=== PATIENT | female | born 1970 | race African-American/Black ===

== ENCOUNTER 2018-08-03 01:09 | Inpatient (IN) | payer OTHER ==
[~2018-08-03] VITALS: Ht 162.6 cm; Wt 91.3 kg
[2018-08-03] MEDS ORDERED: MORPHINE SULFATE 4 MG/ML VIAL. IV ONE ×2 (02:15→03:00)
[2018-08-03] MEDS ORDERED: ONDANSETRON PF 4 MG/2 ML VIAL. IV ONE (02:15)
[2018-08-03] MEDS ORDERED: IV NORMAL SALINE 1000ML BAG 1,000 ML IV ONE (02:15)
[2018-08-03 02:30] LABS: BASO % 1 % (0-3); EOS % 1 % (0-3); HEMATOCRIT 37.7 % (36.0-47.0); HEMOGLOBIN 12.7 g/dL (12.0-15.5); LYMPH # 1.7 x10^3/uL (1.0-4.8); LYMPH % 56 % (24-48); MEAN CORPUSCULAR HEMOGLOBIN 32 pg (25-35); MEAN CORPUSCULAR HGB CONC 34 g/dL (31-37); MEAN CORPUSCULAR VOLUME 94 fL (79-100); MONO # 0.3 x10^3/uL (0.0-1.1); MONO % 9 % (0-9); NEUT # 1.1 x10^3uL (1.8-7.7); NEUT % 35 % (31-73); PLATELET COUNT 200 x10^3/uL (140-400); RED BLOOD COUNT 4.04 x10^6/uL (3.50-5.40); RED CELL DISTRIBUTION WIDTH 14.2 % (11.5-14.5)
[2018-08-03 02:33] LABS: BILIRUBIN,URINE NEGATIVE (NEG); CLARITY,URINE CLEAR; COLOR,URINE YELLOW; NITRITE,URINE NEGATIVE (NEG); PH,URINE 6.5; PROTEIN,URINE NEGATIVE (NEG-TRACE)
[2018-08-03 02:43] LABS: BACTERIA,URINE MODERATE /HPF (0-FEW); RBC,URINE 0 /HPF (0-2); SQUAMOUS EPITHELIAL CELL,UR MANY /LPF
[2018-08-03 02:48] LABS: CALCIUM 9.3 mg/dL (8.5-10.1); CREATININE 0.7 mg/dL (0.6-1.0); GFR 108.5; POTASSIUM 4.1 mmol/L (3.5-5.1)
[2018-08-03 02:55] LABS: ALBUMIN 3.6 g/dL (3.4-5.0); ALBUMIN/GLOBULIN RATIO 0.8 (1.0-1.7); TOTAL BILIRUBIN 0.6 mg/dL (0.2-1.0); TOTAL PROTEIN 8.2 g/dL (6.4-8.2)
[2018-08-03] MEDS ORDERED: CONTRAST GIVEN. MC PRN (03:15)
[2018-08-03] MEDS ORDERED: IOHEXOL 300 MG/ML 100ML VIAL. IV ONE (03:15)
--- NOTE | 2018-08-03 03:54 | RAD ---
EXAM: CT Abdomen and Pelvis with IV contrast CLINICAL HISTORY: severe abdominal pain x tonight; evaluate for small bowel obstruction COMPARISON: none TECHNIQUE: Helical CT of the abdomen and pelvis was performed following the administration of intravenous contrast. Axial, coronal and sagittal reformatted images were generated. PQRS compliance statement - One or more of the following individualized dose reduction techniques were utilized for this study: 1. Automated exposure control 2. Adjustment of the mA and/or kV according to patient size 3. Use of iterative reconstruction technique FINDINGS: Lower chest: Lung bases are clear. Abdomen and Pelvis: No focal liver lesion. Cholecystectomy clips are seen. No biliary ductal dilatation. Spleen is unremarkable. Adrenal glands are normal. Pancreas is unremarkable. Symmetric nephrograms. No focal renal lesion. No hydronephrosis. No hydroureter. The bladder is distended. Appendix is normal. Moderate to large volume colonic stool content in the right colon. No small bowel dilatation. Changes of gastric surgery are seen with anastomotic suture line. No abdominal or pelvic ascites. No abdominal pelvic lymphadenopathy. Bones: Osseous structures are grossly unremarkable. IMPRESSION: 1. No evidence of bowel obstruction. 2. Appendix is normal. 3. Moderate to large volume colonic stool content in the right colon. 4. Bladder is distended. This can be correlated with voluntary or involuntary causes of urinary retention. Electronically signed by: Oziel Blanchard MD (08/03/2018 3:51 AM) [facility]
--- NOTE | 2018-08-03 04:01 | PHYS DOC ---
Past Medical History Past Medical History: Other Additional Past Medical Histor: Scarring Alopecia Past Surgical History: Other Additional Past Surgical Histo: Tiki-en-y and Revision, Fibroid Cysts removed Alcohol Use: Occasionally Drug Use: None Adult General Chief Complaint Chief Complaint: ABDOMINAL PAIN HPI HPI Patient is a 48 year old female presents with a few hours of abdominal pain happened after eating diffuse but more in the upper quadrant areas. Patient has been nauseous she is still passing flatus. No vomiting no fever she had a Tiki- en-Y and [place] and revision about 2 years ago her original surgeon was Dr. Adorno he has since retired. No fever no chest pain. Review of Systems Review of Systems Constitutional: Denies fever or chills [] Eyes: Denies change in visual acuity, redness, or eye pain [] HENT: Denies nasal congestion or sore throat [] Respiratory: Denies cough or shortness of breath [] Cardiovascular: No additional information not addressed in HPI [] GI: Denies abdominal pain, nausea, vomiting, bloody stools or diarrhea [] : Denies dysuria or hematuria [] Musculoskeletal: Denies back pain or joint pain [] Integument: Denies rash or skin lesions [] Neurologic: Denies headache, focal weakness or sensory changes [] Endocrine: Denies polyuria or polydipsia [] All other systems were reviewed and found to be within normal limits, except as documented in this note. Current Medications Current Medications Current Medications Medications (Trade) Dose Ordered Sig/Mikayla Start Time Stop Time Status Last Admin Dose Admin Info (CONTRAST GIVEN -- Rx MONITORING) 1 each PRN DAILY PRN 08/03/18 03:15 08/05/18 03:14 Iohexol (Omnipaque 300 Mg/ml) 75 ml 1X ONCE 08/03/18 03:15 08/03/18 03:16 DC 08/03/18 03:21 75 ML Morphine Sulfate (Morphine Sulfate) 4 mg 1X ONCE 08/03/18 03:00 08/03/18 03:01 DC 08/03/18 03:05 4 MG Ondansetron HCl (Zofran) 4 mg 1X ONCE 08/03/18 02:15 08/03/18 02:16 DC 08/03/18 02:28 4 MG Sodium Chloride 1,000 ml @ 1,000 mls/hr 1X ONCE 08/03/18 02:15 08/03/18 03:14 DC 08/03/18 02:23 1,000 MLS/HR Allergies Allergies Allergies Coded Allergies Type Severity Reaction Last Updated Verified No Known Drug Allergies 08/03/18 No Physical Exam Physical Exam Constitutional: Well developed, well nourisheD, TEARFUL DISstress, non-toxic appearance. [] HENT: Normocephalic, atraumatic, bilateral external ears normal, oropharynx moist, no oral exudates, nose normal. [] Eyes: PERRLA, EOMI, conjunctiva normal, no discharge. [] Neck: Normal range of motion, no tenderness, supple, no stridor. [] Cardiovascular:Heart rate regular rhythm, no murmur [] Lungs & Thorax: Bilateral breath sounds clear to auscultation [] Abdomen: Tenderness to palpation is noted in the epigastric area patient pushes my hand away voluntarily but there are no other obvious peritoneal signs. Back: No tenderness, no CVA tenderness. [] Extremities: No tenderness, no cyanosis, no clubbing, ROM intact, no edema. [] Neurologic: Alert and oriented X 3, normal motor function, normal sensory function, no focal deficits noted. [] Psychologic: Affect normal, judgement normal, mood normal. [] Current Patient Data Vital Signs Vital Signs Date Time Temp Pulse Resp B/P (MAP) Pulse Ox O2 Delivery O2 Flow Rate FiO2 08/03/18 03:05 16 100 Room Air 08/03/18 01:45 97.8 64 130/77 (94) 97.8 Lab Values Laboratory Tests Test 08/03/18 01:58 08/03/18 02:00 08/03/18 02:02 08/03/18 02:40 Urine Collection Type Unknown Urine Color Yellow Urine Clarity Clear Urine pH 6.5 Urine Specific [place] 1.010 Urine Protein Negative mg/dL (NEG-TRACE) Urine Glucose (UA) Negative mg/dL (NEG) Urine Ketones (Stick) 15 mg/dL (NEG) Urine Blood Negative (NEG) Urine Nitrite Negative (NEG) Urine Bilirubin Negative (NEG) Urine Urobilinogen Dipstick 1.0 mg/dL (0.2 mg/dL) Urine Leukocyte Esterase Small (NEG) Urine RBC 0 /HPF (0-2) Urine WBC 5-10 /HPF (0-4) Urine Squamous Epithelial Cells Many /LPF Urine Bacteria Moderate /HPF (0-FEW) Urine Mucus Slight /LPF White Blood Count 3.0 x10^3/uL (4.0-11.0) L Red Blood Count 4.04 x10^6/uL (3.50-5.40) Hemoglobin 12.7 g/dL (12.0-15.5) Hematocrit 37.7 % (36.0-47.0) Mean Corpuscular Volume 94 fL (79-100) Mean Corpuscular Hemoglobin 32 pg (25-35) Mean Corpuscular Hemoglobin Concent 34 g/dL (31-37) Red Cell Distribution Width 14.2 % (11.5-14.5) Platelet Count 200 x10^3/uL (140-400) Neutrophils (%) (Auto) 35 % (31-73) Lymphocytes (%) (Auto) 56 % (24-48) H Monocytes (%) (Auto) 9 % (0-9) Eosinophils (%) (Auto) 1 % (0-3) Basophils (%) (Auto) 1 % (0-3) Neutrophils # (Auto) 1.1 x10^3uL (1.8-7.7) L Lymphocytes # (Auto) 1.7 x10^3/uL (1.0-4.8) Monocytes # (Auto) 0.3 x10^3/uL (0.0-1.1) Eosinophils # (Auto) 0.0 x10^3/uL (0.0-0.7) Basophils # (Auto) 0.0 x10^3/uL (0.0-0.2) Sodium Level 140 mmol/L (136-145) Potassium Level 4.1 mmol/L (3.5-5.1) Chloride Level 103 mmol/L (98-107) Carbon Dioxide Level 23 mmol/L (21-32) Anion Gap 14 (6-14) Blood Urea Nitrogen 17 mg/dL (7-20) Creatinine 0.7 mg/dL (0.6-1.0) Estimated GFR (Cockcroft-Gault) 108.5 BUN/Creatinine Ratio 24 (6-20) H Glucose Level 88 mg/dL (70-99) Calcium Level 9.3 mg/dL (8.5-10.1) Total Bilirubin 0.6 mg/dL (0.2-1.0) Aspartate Amino Transferase (AST) 28 U/L (15-37) Alanine Aminotransferase (ALT) 22 U/L (14-59) Alkaline Phosphatase 66 U/L (46-116) Troponin I Quantitative < 0.017 ng/mL (0.000-0.055) Total Protein 8.2 g/dL (6.4-8.2) Albumin 3.6 g/dL (3.4-5.0) Albumin/Globulin Ratio 0.8 (1.0-1.7) L Lipase 207 U/L (73-393) POC Urine HCG, Qualitative Hcg negative (Negative) Lactic Acid Level 1.4 mmol/L (0.4-2.0) Laboratory Tests 08/03/18 02:00 Laboratory Tests 08/03/18 02:00 EKG EKG []EKG normal sinus rhythm no signs of ischemia Radiology/Procedures Radiology/Procedures [] Impressions: IMPRESSION: 1. No evidence of bowel obstruction. 2. Appendix is normal. 3. Moderate to large volume colonic stool content in the right colon. 4. Bladder is distended. This can be correlated with voluntary or involuntary causes of urinary retention. Electronically signed by: Oziel Blanchard MD (08/03/2018 3:51 AM) [facility] Course & Med Decision Making Course & Med Decision Making Pertinent Labs and Imaging studies reviewed. (See chart for details) PT GIVEN MORPHINE X TWO ON RE-EVAL CT UNREMARKABLE STILL IN SIGNIFICANT PAIN, BURNING PAIN, HAVING BURPING AND BELCHING TAKES DOXYCYCLINE QUERY ESOPHAGITIS WITH PRIOR ROUXENY? WILLADMIT FOR PAIN CONTROL AND CONSULTATIONS PATIENT IS STILL SIGNIFICANTLY UNCOMFORTABLE IN THE ER. [] Dragon Disclaimer Dragon Disclaimer This electronic medical record was generated, in whole or in part, using a voice recognition dictation system. Departure Departure Impression: Primary Impression: Abdominal pain Disposition: ADMITTED INPATIENT Admitting Physician: Ailyn Dill Condition: STABLE Referrals: NO PCP (PCP) TOÑO MCKEON MD Aug 03, 2018 04:01
[2018-08-03] MEDS ORDERED: FAMOTIDINE 20 MG/2 ML VIAL IVP ONE (04:15)
[2018-08-03] MEDS ORDERED: ONDANSETRON PF 4 MG/2 ML VIAL. IV PRN (04:15)
[2018-08-03] MEDS: MORPHINE SULFATE 4 MG/ML VIAL. IV PRN ×2 (04:25→06:29)
[2018-08-03] MEDS: IV NORMAL SALINE 1000ML BAG 1,000 ML IV SCH ×2 (04:32→14:54)
--- NOTE | 2018-08-03 04:58 | EKG ---
[facility] [address] [place] [address] Test Date: 2018-08-03 Test Time: 02:44:37 Pat Name: FATMATA SELF Department: Room: [facility] Gender: F Fur Cutter: : 1970 Requested By: TOÑO MCKEON Order Number: [id number] Reading MD: Castillo Sawyer Measurements Intervals [place] Rate: 54 P: 36 MA: 166 QRS: 14 QRSD: 80 T: 32 QT: 440 QTc: 419 Interpretive Statements SINUS RHYTHM LOW LIMB LEAD VOLTAGE Electronically Signed On 08-10-2018 10:52:17 HAZMAT CDL DRIVER by Castillo Sawyer
[2018-08-03 05:30] VITALS: BP 125/64
[2018-08-03] MEDS ORDERED: SPIR100T4 PO (06:35)
[2018-08-03] MEDS ORDERED: [UNRECOGNIZED DRUG - CODE] PO (06:35)
[2018-08-03 07:15] VITALS: BP 125/71
[2018-08-03] MEDS ORDERED: HYDROmorphone 2 MG/ML VIAL IV PRN (07:45)
--- NOTE | 2018-08-03 08:59 | PDOC1 ---
History and Physical Date of Admission Date of Admission DATE: 08/03/18 TIME: 08:59 Identification/Chief Complaint Chief Complaint seen in er with a few hours of abdominal pain happened after eating diffuse but more in the upper quadrant areas. Patient has been nauseous she is still passing flatus. No vomiting no fever she had a Tiki-en-Y and [place] and revision about 2 years ago her original surgeon was Dr. Adorno , since retired Past Medical History Past Medical History Past Medical History Past Medical History: Other Additional Past Medical Histor: Scarring Alopecia Past Surgical History: Other Additional Past Surgical Histo: Tiki-en-y and Revision, Fibroid Cysts removed Alcohol Use: Occasionally Drug Use: None FAMILY HX OBESITY Family History Family History: High Cholestrol Social History Smoke: No ALCOHOL: none Drugs: None Current Medications Current Medications Current Medications Morphine Sulfate (Morphine Sulfate) 4 mg 1X ONCE IV Last administered on at 02:29; Start 08/03/18 at 02:15; Stop 08/03/18 at 02:16; Status DC Sodium Chloride 1,000 ml @ 1,000 mls/hr 1X ONCE IV Last administered on at 02:23; Start 08/03/18 at 02:15; Stop 08/03/18 at 03:14; Status DC Ondansetron HCl (Zofran) 4 mg 1X ONCE IV Last administered on 08/03/18at 02:28 ; Start 08/03/18 at 02:15; Stop 08/03/18 at 02:16; Status DC Morphine Sulfate (Morphine Sulfate) 4 mg 1X ONCE IV Last administered on at 03:05; Start 08/03/18 at 03:00; Stop 08/03/18 at 03:01; Status DC Iohexol (Omnipaque 300 Mg/ml) 75 ml 1X ONCE IV Last administered on 08/03/18at 03:21; Start 08/03/18 at 03:15; Stop 08/03/18 at 03:16; Status DC Info (CONTRAST GIVEN -- Rx MONITORING) 1 each PRN DAILY PRN MC SEE COMMENTS; Start 08/03/18 at 03:15; Stop 08/05/18 at 03:14 Ondansetron HCl (Zofran) 4 mg PRN Q8HRS PRN IV NAUSEA/VOMITING; Start 08/03/18 at 04:15; Stop 08/04/18 at 04:14 Morphine Sulfate (Morphine Sulfate) 4 mg PRN Q2HR PRN IV PAIN Last administered on 08/03/18at 06:29; Start 08/03/18 at 04:15; Stop 08/04/18 at 04:14 Sodium Chloride 1,000 ml @ 75 mls/hr [id number] IV Last administered on at 04:32; Start 08/03/18 at 04:15; Stop 08/04/18 at 04:14 Famotidine (Pepcid Vial) 20 mg 1X ONCE IVP Last administered on 08/03/18at 04: 28; Start 08/03/18 at 04:15; Stop 08/03/18 at 04:16; Status DC Hydromorphone HCl (Dilaudid) 1 mg PRN Q3HRS PRN IV SEVERE PAIN Last administered on 08/03/18at 08:25; Start 08/03/18 at 07:45 Active Scripts Active Reported Doxycycline Hyclate 150 Mg Tablet 150 Mg PO DAILY Spironolactone 100 Mg Tablet 100 Mg PO BID Allergies Allergies: Coded Allergies: No Known Drug Allergies (Unverified , 08/03/18) ROS Review of System Review of Systems Review of Systems Constitutional: Denies fever or chills [] Eyes: Denies change in visual acuity, redness, or eye pain [] HENT: Denies nasal congestion or sore throat [] Respiratory: Denies cough or shortness of breath [] Cardiovascular: No additional information not addressed in HPI [] GI: Denies abdominal pain, nausea, vomiting, bloody stools or diarrhea [] : Denies dysuria or hematuria [] Musculoskeletal: Denies back pain or joint pain [] Integument: Denies rash or skin lesions [] Neurologic: Denies headache, focal weakness or sensory changes [] Endocrine: Denies polyuria or polydipsia [] 14 pt systems were reviewed and found to be within normal limits, except as documented . Gastrointestinal: Yes Abdominal Pain, Yes Constipation Physical Exam Physical Exam Physical Exam Physical Exam Constitutional: Well developed, well nourisheD, TEARFUL DISstress, non-toxic appearance. [] HENT: Normocephalic, atraumatic, bilateral external ears normal, oropharynx moist, no oral exudates, nose normal. [] Eyes: PERRLA, EOMI, conjunctiva normal, no discharge. [] Neck: Normal range of motion, no tenderness, supple, no stridor. [] Cardiovascular:Heart rate regular rhythm, no murmur [] Lungs & Thorax: Bilateral breath sounds clear to auscultation [] Abdomen: Tenderness to palpation is noted in the epigastric area patient pushes my hand away voluntarily but there are no other obvious peritoneal signs. Back: No tenderness, no CVA tenderness. [] Extremities: No tenderness, no cyanosis, no clubbing, ROM intact, no edema. [] Neurologic: Alert and oriented X 3, normal motor function, normal sensory function, no focal deficits noted. [] Psychologic: Affect normal, judgement normal, mood normal. [] General: Alert, Oriented X3, Cooperative HEENT: PERRLA, EOMI, Mucous membr. moist/pink Lungs: Clear to auscultation Heart: RRR Breasts: Not examined Abdomen: Normal bowel sounds Rectal Exam: not examined PELVIC: Examination not indicated Neuro: Normal speech, Cranial nerves 3-12 NL Psych/Mental Status: Mental status NL, Mood NL Vitals Vitals Vital Signs Date Time Temp Pulse Resp B/P (MAP) Pulse Ox O2 Delivery O2 Flow Rate FiO2 08/03/18 07:15 98.4 71 18 125/71 (89) 96 Room Air 98.4 Labs Labs Laboratory Tests Test 08/03/18 01:58 08/03/18 02:00 08/03/18 02:02 08/03/18 02:40 Urine Collection Type Unknown Urine Color Yellow Urine Clarity Clear Urine pH 6.5 Urine Specific [place] 1.010 Urine Protein Negative mg/dL (NEG-TRACE) Urine Glucose (UA) Negative mg/dL (NEG) Urine Ketones (Stick) 15 mg/dL (NEG) Urine Blood Negative (NEG) Urine Nitrite Negative (NEG) Urine Bilirubin Negative (NEG) Urine Urobilinogen Dipstick 1.0 mg/dL (0.2 mg/dL) Urine Leukocyte Esterase Small (NEG) Urine RBC 0 /HPF (0-2) Urine WBC 5-10 /HPF (0-4) Urine Squamous Epithelial Cells Many /LPF Urine Bacteria Moderate /HPF (0-FEW) Urine Mucus Slight /LPF White Blood Count 3.0 x10^3/uL (4.0-11.0) Red Blood Count 4.04 x10^6/uL (3.50-5.40) Hemoglobin 12.7 g/dL (12.0-15.5) Hematocrit 37.7 % (36.0-47.0) Mean Corpuscular Volume 94 fL (79-100) Mean Corpuscular Hemoglobin 32 pg (25-35) Mean Corpuscular Hemoglobin Concent 34 g/dL (31-37) Red Cell Distribution Width 14.2 % (11.5-14.5) Platelet Count 200 x10^3/uL (140-400) Neutrophils (%) (Auto) 35 % (31-73) Lymphocytes (%) (Auto) 56 % (24-48) Monocytes (%) (Auto) 9 % (0-9) Eosinophils (%) (Auto) 1 % (0-3) Basophils (%) (Auto) 1 % (0-3) Neutrophils # (Auto) 1.1 x10^3uL (1.8-7.7) Lymphocytes # (Auto) 1.7 x10^3/uL (1.0-4.8) Monocytes # (Auto) 0.3 x10^3/uL (0.0-1.1) Eosinophils # (Auto) 0.0 x10^3/uL (0.0-0.7) Basophils # (Auto) 0.0 x10^3/uL (0.0-0.2) Sodium Level 140 mmol/L (136-145) Potassium Level 4.1 mmol/L (3.5-5.1) Chloride Level 103 mmol/L (98-107) Carbon Dioxide Level 23 mmol/L (21-32) Anion Gap 14 (6-14) Blood Urea Nitrogen 17 mg/dL (7-20) Creatinine 0.7 mg/dL (0.6-1.0) Estimated GFR (Cockcroft-Gault) 108.5 BUN/Creatinine Ratio 24 (6-20) Glucose Level 88 mg/dL (70-99) Calcium Level 9.3 mg/dL (8.5-10.1) Total Bilirubin 0.6 mg/dL (0.2-1.0) Aspartate Amino Transf (AST/SGOT) 28 U/L (15-37) Alanine Aminotransferase (ALT/SGPT) 22 U/L (14-59) Alkaline Phosphatase 66 U/L (46-116) Troponin I Quantitative < 0.017 ng/mL (0.000-0.055) Total Protein 8.2 g/dL (6.4-8.2) Albumin 3.6 g/dL (3.4-5.0) Albumin/Globulin Ratio 0.8 (1.0-1.7) Lipase 207 U/L (73-393) Bedside Urine HCG, Qualitative Hcg negative (Negative) Lactic Acid Level 1.4 mmol/L (0.4-2.0) Laboratory Tests Test 08/03/18 01:58 08/03/18 02:00 08/03/18 02:02 08/03/18 02:40 Urine Collection Type Unknown Urine Color Yellow Urine Clarity Clear Urine pH 6.5 Urine Specific [place] 1.010 Urine Protein Negative mg/dL (NEG-TRACE) Urine Glucose (UA) Negative mg/dL (NEG) Urine Ketones (Stick) 15 mg/dL (NEG) Urine Blood Negative (NEG) Urine Nitrite Negative (NEG) Urine Bilirubin Negative (NEG) Urine Urobilinogen Dipstick 1.0 mg/dL (0.2 mg/dL) Urine Leukocyte Esterase Small (NEG) Urine RBC 0 /HPF (0-2) Urine WBC 5-10 /HPF (0-4) Urine Squamous Epithelial Cells Many /LPF Urine Bacteria Moderate /HPF (0-FEW) Urine Mucus Slight /LPF White Blood Count 3.0 x10^3/uL (4.0-11.0) Red Blood Count 4.04 x10^6/uL (3.50-5.40) Hemoglobin 12.7 g/dL (12.0-15.5) Hematocrit 37.7 % (36.0-47.0) Mean Corpuscular Volume 94 fL (79-100) Mean Corpuscular Hemoglobin 32 pg (25-35) Mean Corpuscular Hemoglobin Concent 34 g/dL (31-37) Red Cell Distribution Width 14.2 % (11.5-14.5) Platelet Count 200 x10^3/uL (140-400) Neutrophils (%) (Auto) 35 % (31-73) Lymphocytes (%) (Auto) 56 % (24-48) Monocytes (%) (Auto) 9 % (0-9) Eosinophils (%) (Auto) 1 % (0-3) Basophils (%) (Auto) 1 % (0-3) Neutrophils # (Auto) 1.1 x10^3uL (1.8-7.7) Lymphocytes # (Auto) 1.7 x10^3/uL (1.0-4.8) Monocytes # (Auto) 0.3 x10^3/uL (0.0-1.1) Eosinophils # (Auto) 0.0 x10^3/uL (0.0-0.7) Basophils # (Auto) 0.0 x10^3/uL (0.0-0.2) Sodium Level 140 mmol/L (136-145) Potassium Level 4.1 mmol/L (3.5-5.1) Chloride Level 103 mmol/L (98-107) Carbon Dioxide Level 23 mmol/L (21-32) Anion Gap 14 (6-14) Blood Urea Nitrogen 17 mg/dL (7-20) Creatinine 0.7 mg/dL (0.6-1.0) Estimated GFR (Cockcroft-Gault) 108.5 BUN/Creatinine Ratio 24 (6-20) Glucose Level 88 mg/dL (70-99) Calcium Level 9.3 mg/dL (8.5-10.1) Total Bilirubin 0.6 mg/dL (0.2-1.0) Aspartate Amino Transf (AST/SGOT) 28 U/L (15-37) Alanine Aminotransferase (ALT/SGPT) 22 U/L (14-59) Alkaline Phosphatase 66 U/L (46-116) Troponin I Quantitative < 0.017 ng/mL (0.000-0.055) Total Protein 8.2 g/dL (6.4-8.2) Albumin 3.6 g/dL (3.4-5.0) Albumin/Globulin Ratio 0.8 (1.0-1.7) Lipase 207 U/L (73-393) Bedside Urine HCG, Qualitative Hcg negative (Negative) Lactic Acid Level 1.4 mmol/L (0.4-2.0) Images Images PROCEDURE: CT ABD PELV W/ IV CONTRST ONLY EXAM: CT Abdomen and Pelvis with IV contrast CLINICAL HISTORY: severe abdominal pain x tonight; evaluate for small bowel obstruction COMPARISON: none TECHNIQUE: Helical CT of the abdomen and pelvis was performed following the administration of intravenous contrast. Axial, coronal and sagittal reformatted images were generated. PQRS compliance statement - One or more of the following individualized dose reduction techniques were utilized for this study: 1. Automated exposure control 2. Adjustment of the mA and/or kV according to patient size 3. Use of iterative reconstruction technique FINDINGS: Lower chest: Lung bases are clear. Abdomen and Pelvis: No focal liver lesion. Cholecystectomy clips are seen. No biliary ductal dilatation. Spleen is unremarkable. Adrenal glands are normal. Pancreas is unremarkable. Symmetric nephrograms. No focal renal lesion. No hydronephrosis. No hydroureter. The bladder is distended. Appendix is normal. Moderate to large volume colonic stool content in the right colon. No small bowel dilatation. Changes of gastric surgery are seen with anastomotic suture line. No abdominal or pelvic ascites. No abdominal pelvic lymphadenopathy. Bones: Osseous structures are grossly unremarkable. IMPRESSION: 1. No evidence of bowel obstruction. 2. Appendix is normal. 3. Moderate to large volume colonic stool content in the right colon. 4. Bladder is distended. This can be correlated with voluntary or involuntary causes of urinary retention. Electronically signed by: Oziel Blanchard MD (08/03/2018 3:51 AM) [facility] VTE Prophylaxis Ordered VTE Prophylaxis Devices: Yes VTE Pharmacological Prophylaxi: Yes Assessment/Plan Assessment/Plan IMPRESSION: 1. No evidence of bowel obstruction. 2. Appendix is normal. 3. Moderate to large volume colonic stool content in the right colon. 4. abdominal pain sec to # 3 plan laxatives miralax daily colace 100mg po bid gen surg consult d/c narcotics, will compound obstipation mag citrate 12 oz po x 1 now LIDA GOTTI MD Aug 03, 2018 08:59
--- NOTE | 2018-08-03 09:04 | PDOC2 ---
RANDEE PIZANO CREMATOR 08/03/18 0904: CONSULT Date of Consult Date of Consult DATE: 08/03/18 TIME: 08:58 Reason for Consult Reason for Consult: abdominal pain Referring Physician Referring Physician: ER Identification/Chief Complaint Chief Complaint abdominal pain Source Source: Chart review, Patient History of Present Illness Reason for Visit: Acute onset of abdominal pain after eating salmon yesterday. The pain continued to worsen. Associated nausea. Reports last stool on Thursday, no diarrhea. Pain is significant across upper abdomen Hx of gastric bypass and revision Past Medical History Past Medical History no pertinent hx Past Surgical History Past Surgical History: Hysterectomy (partial), Other (gastric bypass and revision) Family History Family History: Other (noncontributory to current illness ) Social History No ALCOHOL: rare Drugs: None Lives: with Family Current Medications Current Medications Current Medications Morphine Sulfate (Morphine Sulfate) 4 mg 1X ONCE IV Last administered on at 02:29; Start 08/03/18 at 02:15; Stop 08/03/18 at 02:16; Status DC Sodium Chloride 1,000 ml @ 1,000 mls/hr 1X ONCE IV Last administered on at 02:23; Start 08/03/18 at 02:15; Stop 08/03/18 at 03:14; Status DC Ondansetron HCl (Zofran) 4 mg 1X ONCE IV Last administered on 08/03/18at 02:28 ; Start 08/03/18 at 02:15; Stop 08/03/18 at 02:16; Status DC Morphine Sulfate (Morphine Sulfate) 4 mg 1X ONCE IV Last administered on at 03:05; Start 08/03/18 at 03:00; Stop 08/03/18 at 03:01; Status DC Iohexol (Omnipaque 300 Mg/ml) 75 ml 1X ONCE IV Last administered on 08/03/18at 03:21; Start 08/03/18 at 03:15; Stop 08/03/18 at 03:16; Status DC Info (CONTRAST GIVEN -- Rx MONITORING) 1 each PRN DAILY PRN MC SEE COMMENTS; Start 08/03/18 at 03:15; Stop 08/05/18 at 03:14 Ondansetron HCl (Zofran) 4 mg PRN Q8HRS PRN IV NAUSEA/VOMITING; Start 08/03/18 at 04:15; Stop 08/04/18 at 04:14 Morphine Sulfate (Morphine Sulfate) 4 mg PRN Q2HR PRN IV PAIN Last administered on 08/03/18at 06:29; Start 08/03/18 at 04:15; Stop 08/04/18 at 04:14 Sodium Chloride 1,000 ml @ 75 mls/hr [id number] IV Last administered on at 04:32; Start 08/03/18 at 04:15; Stop 08/04/18 at 04:14 Famotidine (Pepcid Vial) 20 mg 1X ONCE IVP Last administered on 08/03/18at 04: 28; Start 08/03/18 at 04:15; Stop 08/03/18 at 04:16; Status DC Hydromorphone HCl (Dilaudid) 1 mg PRN Q3HRS PRN IV SEVERE PAIN Last administered on 08/03/18at 08:25; Start 08/03/18 at 07:45 Active Scripts Active Reported Doxycycline Hyclate 150 Mg Tablet 150 Mg PO DAILY Spironolactone 100 Mg Tablet 100 Mg PO BID Allergies Allergies: Coded Allergies: No Known Drug Allergies (Unverified , 08/03/18) ROS General: No: Chills, Other (fevers ) PSYCHOLOGICAL ROS: No: Anxiety, Depression Eyes: No Blurry vision HEENT: No: Heacaches, Sore Throat Hematological and Lymphatic: No: Bleeding Problems, Blood Clots Respiratory: No: Cough, Shortness of breath Cardiovascular: No Chest Pain, No Palpitations Gastrointestinal: Yes Other (see hpi) Genitourinary: No Dysuria, No Hematuria Musculoskeletal: No Joint Pain, No Muscle Pain Neurological: No Confusion, No Impaired Coord/balance Skin: No Pruritus, No Rash Physical Exam General: Alert, Oriented X3, Cooperative, No acute distress HEENT: PERRLA, Mucous membr. moist/pink Lungs: Clear to auscultation, Normal air movement Heart: Regular rate, Normal S1, Normal S2, No murmurs Abdomen: Soft, Other (TTP upper abdomen, no guarding ) Extremities: No clubbing, No cyanosis Skin: No rashes, No breakdown Neuro: Normal gait, Normal speech Psych/Mental Status: Mental status NL, Mood NL MUSCULOSKELETAL: No deformity, No swelling Vitals VITALS Vital Signs Date Time Temp Pulse Resp B/P (MAP) Pulse Ox O2 Delivery O2 Flow Rate FiO2 08/03/18 07:15 98.4 71 18 125/71 (89) 96 Room Air 98.4 Labs Labs Laboratory Tests Test 08/03/18 01:58 08/03/18 02:00 08/03/18 02:02 08/03/18 02:40 Urine Collection Type Unknown Urine Color Yellow Urine Clarity Clear Urine pH 6.5 Urine Specific [place] 1.010 Urine Protein Negative mg/dL (NEG-TRACE) Urine Glucose (UA) Negative mg/dL (NEG) Urine Ketones (Stick) 15 mg/dL (NEG) Urine Blood Negative (NEG) Urine Nitrite Negative (NEG) Urine Bilirubin Negative (NEG) Urine Urobilinogen Dipstick 1.0 mg/dL (0.2 mg/dL) Urine Leukocyte Esterase Small (NEG) Urine RBC 0 /HPF (0-2) Urine WBC 5-10 /HPF (0-4) Urine Squamous Epithelial Cells Many /LPF Urine Bacteria Moderate /HPF (0-FEW) Urine Mucus Slight /LPF White Blood Count 3.0 x10^3/uL (4.0-11.0) Red Blood Count 4.04 x10^6/uL (3.50-5.40) Hemoglobin 12.7 g/dL (12.0-15.5) Hematocrit 37.7 % (36.0-47.0) Mean Corpuscular Volume 94 fL (79-100) Mean Corpuscular Hemoglobin 32 pg (25-35) Mean Corpuscular Hemoglobin Concent 34 g/dL (31-37) Red Cell Distribution Width 14.2 % (11.5-14.5) Platelet Count 200 x10^3/uL (140-400) Neutrophils (%) (Auto) 35 % (31-73) Lymphocytes (%) (Auto) 56 % (24-48) Monocytes (%) (Auto) 9 % (0-9) Eosinophils (%) (Auto) 1 % (0-3) Basophils (%) (Auto) 1 % (0-3) Neutrophils # (Auto) 1.1 x10^3uL (1.8-7.7) Lymphocytes # (Auto) 1.7 x10^3/uL (1.0-4.8) Monocytes # (Auto) 0.3 x10^3/uL (0.0-1.1) Eosinophils # (Auto) 0.0 x10^3/uL (0.0-0.7) Basophils # (Auto) 0.0 x10^3/uL (0.0-0.2) Sodium Level 140 mmol/L (136-145) Potassium Level 4.1 mmol/L (3.5-5.1) Chloride Level 103 mmol/L (98-107) Carbon Dioxide Level 23 mmol/L (21-32) Anion Gap 14 (6-14) Blood Urea Nitrogen 17 mg/dL (7-20) Creatinine 0.7 mg/dL (0.6-1.0) Estimated GFR (Cockcroft-Gault) 108.5 BUN/Creatinine Ratio 24 (6-20) Glucose Level 88 mg/dL (70-99) Calcium Level 9.3 mg/dL (8.5-10.1) Total Bilirubin 0.6 mg/dL (0.2-1.0) Aspartate Amino Transf (AST/SGOT) 28 U/L (15-37) Alanine Aminotransferase (ALT/SGPT) 22 U/L (14-59) Alkaline Phosphatase 66 U/L (46-116) Troponin I Quantitative < 0.017 ng/mL (0.000-0.055) Total Protein 8.2 g/dL (6.4-8.2) Albumin 3.6 g/dL (3.4-5.0) Albumin/Globulin Ratio 0.8 (1.0-1.7) Lipase 207 U/L (73-393) Bedside Urine HCG, Qualitative Hcg negative (Negative) Lactic Acid Level 1.4 mmol/L (0.4-2.0) Laboratory Tests Test 08/03/18 01:58 08/03/18 02:00 08/03/18 02:02 08/03/18 02:40 Urine Collection Type Unknown Urine Color Yellow Urine Clarity Clear Urine pH 6.5 Urine Specific [place] 1.010 Urine Protein Negative mg/dL (NEG-TRACE) Urine Glucose (UA) Negative mg/dL (NEG) Urine Ketones (Stick) 15 mg/dL (NEG) Urine Blood Negative (NEG) Urine Nitrite Negative (NEG) Urine Bilirubin Negative (NEG) Urine Urobilinogen Dipstick 1.0 mg/dL (0.2 mg/dL) Urine Leukocyte Esterase Small (NEG) Urine RBC 0 /HPF (0-2) Urine WBC 5-10 /HPF (0-4) Urine Squamous Epithelial Cells Many /LPF Urine Bacteria Moderate /HPF (0-FEW) Urine Mucus Slight /LPF White Blood Count 3.0 x10^3/uL (4.0-11.0) Red Blood Count 4.04 x10^6/uL (3.50-5.40) Hemoglobin 12.7 g/dL (12.0-15.5) Hematocrit 37.7 % (36.0-47.0) Mean Corpuscular Volume 94 fL (79-100) Mean Corpuscular Hemoglobin 32 pg (25-35) Mean Corpuscular Hemoglobin Concent 34 g/dL (31-37) Red Cell Distribution Width 14.2 % (11.5-14.5) Platelet Count 200 x10^3/uL (140-400) Neutrophils (%) (Auto) 35 % (31-73) Lymphocytes (%) (Auto) 56 % (24-48) Monocytes (%) (Auto) 9 % (0-9) Eosinophils (%) (Auto) 1 % (0-3) Basophils (%) (Auto) 1 % (0-3) Neutrophils # (Auto) 1.1 x10^3uL (1.8-7.7) Lymphocytes # (Auto) 1.7 x10^3/uL (1.0-4.8) Monocytes # (Auto) 0.3 x10^3/uL (0.0-1.1) Eosinophils # (Auto) 0.0 x10^3/uL (0.0-0.7) Basophils # (Auto) 0.0 x10^3/uL (0.0-0.2) Sodium Level 140 mmol/L (136-145) Potassium Level 4.1 mmol/L (3.5-5.1) Chloride Level 103 mmol/L (98-107) Carbon Dioxide Level 23 mmol/L (21-32) Anion Gap 14 (6-14) Blood Urea Nitrogen 17 mg/dL (7-20) Creatinine 0.7 mg/dL (0.6-1.0) Estimated GFR (Cockcroft-Gault) 108.5 BUN/Creatinine Ratio 24 (6-20) Glucose Level 88 mg/dL (70-99) Calcium Level 9.3 mg/dL (8.5-10.1) Total Bilirubin 0.6 mg/dL (0.2-1.0) Aspartate Amino Transf (AST/SGOT) 28 U/L (15-37) Alanine Aminotransferase (ALT/SGPT) 22 U/L (14-59) Alkaline Phosphatase 66 U/L (46-116) Troponin I Quantitative < 0.017 ng/mL (0.000-0.055) Total Protein 8.2 g/dL (6.4-8.2) Albumin 3.6 g/dL (3.4-5.0) Albumin/Globulin Ratio 0.8 (1.0-1.7) Lipase 207 U/L (73-393) Bedside Urine HCG, Qualitative Hcg negative (Negative) Lactic Acid Level 1.4 mmol/L (0.4-2.0) Assessment/Plan Assessment/Plan abdominal pain, acute after meal hydration, bowel rest--? self limiting GI consult pending no surgical plans Ct with constipation PATRICK VEGA MD 08/03/18 1327: CONSULT Assessment/Plan Assessment/Plan Pt seen and examined by myself; 48 year old female who developed upper abdominal pain after eating; pain is persistent and relieved with pain meds, non radiating, she does admit to spitting up some. She states she had a lap gastric bypass years ago with Dr Adorno and a revision around [address] Royal. PMH/PSH/SH/ROS as above; exam: alert, somewhat lethargic after receiving pain meds, no neck masses, no scleral icterus, lungs clear, heart RR and R, abdomen soft, tender with palpation in upper mid abdomen, ext neg for edema; Labs and CT reviewed. A/P) 48 year old female with prior history lap gastric bypass and subsequent revision, abdominal pain, no acute findings on CT scan. No clear surgical process, GI consult pending; If pain persists would consider sending the patient to Dr Royal to evaluate if related to her bypass revision. We will sign off as we do not offer bariatric surgical services. RANDEE PIZANO APRN Aug 03, 2018 09:04 PATRICK VEGA MD Aug 03, 2018 13:27
[2018-08-03 11:07] VITALS: BP 133/58
[2018-08-03] MEDS ORDERED: MAGNESIUM CITRATE 296 ML SOLUTION. PO ONE (12:30)
--- NOTE | 2018-08-03 13:10 | PDOC2 ---
GI CONSULT Reason For Consult: Abd pain HPI: HPI: 48 y/o female admitted through ER. Acute onset of mid abdominal pain (cramping , burning, sometimes sharp) after eating at [employer] yesterday. Associated w / n/v, no diarrhea. I saw her earlier this morning - ongoing pain but improved w/ meds, felt thirsty. H/o GERD previously on omeprazole. No dysphagia. No hematemesis. Denies constipation. No chronic abd pain. No hematochezia or melena. No PUD, liver, or pancreas history. H/o Tiki-en-Y w/ Dr. Araujo in 2004. Lost 130 lbs, then had revision in 2016 "for weight gain." Last saw Dr. Araujo for a check-up last year, unclear when last EGD (?prior to revision). Weight stable since. S/p cholecystectomy for stones. No previous colonoscopy. PMH: PMH: scarring alopecia Tiki-en-Y w/ revision, cholecystectomy, oophorectomy ("for fibroid"), umbilical hernia repair FH: Family History: Cancer (father - renal) Social History: Smoke: No ALCOHOL: none Drugs: None ROS: GEN: Denies fevers, chills, sweats HEENT: Denies blurred vision, sore throat CV: Denies chest pain RESP: Denies shortness of air, cough GI: Per HPI : Denies hematuria, dysuria ENDO: Denies weight changes NEURO: Denies confusion, dizziness MSK: Denies weakness, joint pain/swelling SKIN: Denies jaundice, pruritus Vitals: Vitals: Vital Signs Date Time Temp Pulse Resp B/P (MAP) Pulse Ox O2 Delivery O2 Flow Rate FiO2 08/03/18 11:07 97.9 67 18 133/58 (83) 97 Room Air 97.9 Labs: Labs: Laboratory Tests Test 08/03/18 01:58 08/03/18 02:00 08/03/18 02:02 08/03/18 02:40 Urine Collection Type Unknown Urine Color Yellow Urine Clarity Clear Urine pH 6.5 Urine Specific [place] 1.010 Urine Protein Negative mg/dL (NEG-TRACE) Urine Glucose (UA) Negative mg/dL (NEG) Urine Ketones (Stick) 15 mg/dL (NEG) Urine Blood Negative (NEG) Urine Nitrite Negative (NEG) Urine Bilirubin Negative (NEG) Urine Urobilinogen Dipstick 1.0 mg/dL (0.2 mg/dL) Urine Leukocyte Esterase Small (NEG) Urine RBC 0 /HPF (0-2) Urine WBC 5-10 /HPF (0-4) Urine Squamous Epithelial Cells Many /LPF Urine Bacteria Moderate /HPF (0-FEW) Urine Mucus Slight /LPF White Blood Count 3.0 x10^3/uL (4.0-11.0) Red Blood Count 4.04 x10^6/uL (3.50-5.40) Hemoglobin 12.7 g/dL (12.0-15.5) Hematocrit 37.7 % (36.0-47.0) Mean Corpuscular Volume 94 fL (79-100) Mean Corpuscular Hemoglobin 32 pg (25-35) Mean Corpuscular Hemoglobin Concent 34 g/dL (31-37) Red Cell Distribution Width 14.2 % (11.5-14.5) Platelet Count 200 x10^3/uL (140-400) Neutrophils (%) (Auto) 35 % (31-73) Lymphocytes (%) (Auto) 56 % (24-48) Monocytes (%) (Auto) 9 % (0-9) Eosinophils (%) (Auto) 1 % (0-3) Basophils (%) (Auto) 1 % (0-3) Neutrophils # (Auto) 1.1 x10^3uL (1.8-7.7) Lymphocytes # (Auto) 1.7 x10^3/uL (1.0-4.8) Monocytes # (Auto) 0.3 x10^3/uL (0.0-1.1) Eosinophils # (Auto) 0.0 x10^3/uL (0.0-0.7) Basophils # (Auto) 0.0 x10^3/uL (0.0-0.2) Sodium Level 140 mmol/L (136-145) Potassium Level 4.1 mmol/L (3.5-5.1) Chloride Level 103 mmol/L (98-107) Carbon Dioxide Level 23 mmol/L (21-32) Anion Gap 14 (6-14) Blood Urea Nitrogen 17 mg/dL (7-20) Creatinine 0.7 mg/dL (0.6-1.0) Estimated GFR (Cockcroft-Gault) 108.5 BUN/Creatinine Ratio 24 (6-20) Glucose Level 88 mg/dL (70-99) Calcium Level 9.3 mg/dL (8.5-10.1) Total Bilirubin 0.6 mg/dL (0.2-1.0) Aspartate Amino Transf (AST/SGOT) 28 U/L (15-37) Alanine Aminotransferase (ALT/SGPT) 22 U/L (14-59) Alkaline Phosphatase 66 U/L (46-116) Troponin I Quantitative < 0.017 ng/mL (0.000-0.055) Total Protein 8.2 g/dL (6.4-8.2) Albumin 3.6 g/dL (3.4-5.0) Albumin/Globulin Ratio 0.8 (1.0-1.7) Lipase 207 U/L (73-393) Bedside Urine HCG, Qualitative Hcg negative (Negative) Lactic Acid Level 1.4 mmol/L (0.4-2.0) Allergies: Coded Allergies: No Known Drug Allergies (Unverified , 08/03/18) Medications: Current Medications Medications (Trade) Dose Ordered Sig/Mikayla Route PRN Reason Start Time Stop Time Status Last Admin Dose Admin Morphine Sulfate (Morphine Sulfate) 4 mg 1X ONCE IV 08/03/18 02:15 08/03/18 02:16 DC 08/03/18 02:29 Sodium Chloride 1,000 ml @ 1,000 mls/hr 1X ONCE IV 08/03/18 02:15 08/03/18 03:14 DC 08/03/18 02:23 Ondansetron HCl (Zofran) 4 mg 1X ONCE IV 08/03/18 02:15 08/03/18 02:16 DC 08/03/18 02:28 Morphine Sulfate (Morphine Sulfate) 4 mg 1X ONCE IV 08/03/18 03:00 08/03/18 03:01 DC 08/03/18 03:05 Iohexol (Omnipaque 300 Mg/ml) 75 ml 1X ONCE IV 08/03/18 03:15 08/03/18 03:16 DC 08/03/18 03:21 Ondansetron HCl (Zofran) 4 mg PRN Q8HRS PRN IV NAUSEA/VOMITING 08/03/18 04:15 08/04/18 04:14 08/03/18 09:04 Morphine Sulfate (Morphine Sulfate) 4 mg PRN Q2HR PRN IV PAIN 08/03/18 04:15 08/03/18 12:09 DC 08/03/18 06:29 Sodium Chloride 1,000 ml @ 75 mls/hr [id number] IV 08/03/18 04:15 08/04/18 04:14 08/03/18 04:32 Famotidine (Pepcid Vial) 20 mg 1X ONCE IVP 08/03/18 04:15 08/03/18 04:16 DC 08/03/18 04:28 Hydromorphone HCl (Dilaudid) 1 mg PRN Q3HRS PRN IV SEVERE PAIN 08/03/18 07:45 08/03/18 12:09 DC 08/03/18 08:25 Imaging: Imaging: CT A/P IMPRESSION: 1. No evidence of bowel obstruction. 2. Appendix is normal. 3. Moderate to large volume colonic stool content in the right colon. 4. Bladder is distended. This can be correlated with voluntary or involuntary causes of urinary retention. PE: GEN: NAD HEENT: Atraumatic, PERRL LUNGS: CTAB HEART: RRR ABD: NABS, S/ND, quite tender in epigastrium to light touch EXTREMITY: No edema SKIN: No rashes, no jaundice NEURO/PSYCH: A & O 3, drowsy A/P: A/P: Epigastric pain, n/v Leukopenia Abnormal CT - retained stool, distended bladder GERD S/p Tiki-en-Y and revision S/p cholecystectomy CRC screen - average risk -- ?infectious - complicated w/ gastric bypass/revision history Try clears and observe. Agree w/ PPI, Miralax, and Mag Citrate. Will add Carafate. Could consider EGD if indicated. Follow-up w/ bariatric surgeon. Screening colonoscopy at age 51. TANISHA MARCH Aug 03, 2018 13:10
[2018-08-03] MEDS: PROMETHAZINE 12.5 MG TABLET. PO PRN (13:26)
[2018-08-03 14:06] LABS: BARBITURATES NEG (NEG); BENZODIAZEPINES NEG (NEG); CANNABINOIDS NEG (NEG); COCAINE NEG (NEG); METHADONE NEG (NEG); OPIATES POS (NEG); PHENCYCLIDINE NEG (NEG)
[2018-08-03 14:15] LABS: AMPHETAMINE/METHAMPHETAMINE NEG (NEG)
[2018-08-03] MEDS: POLYETHYLENE GLYCOL 3350 17 GM PACKET. PO SCH (14:43)
[2018-08-03] MEDS: DOXYCYCLINE HYCLATE 100 MG TABLET PO SCH (14:43)
[2018-08-03] MEDS: SPIRONOLACTONE 25 MG TABLET PO SCH ×2 (14:43→20:37)
[2018-08-03 15:00] VITALS: BP 111/69
[2018-08-03] MEDS: PANTOPRAZOLE 40 MG TABLET.DR. PO SCH (17:16)
[2018-08-03] MEDS: SUCRALFATE 1 GM/10 ML ORAL.SUSP. PO SCH ×2 (17:16→20:37)
[2018-08-03] MEDS: DOCUSATE SODIUM 100 MG CAPSULE. PO SCH (17:16)
[2018-08-03 19:57] VITALS: BP 100/68
[2018-08-03 23:13] VITALS: BP 102/65
[2018-08-04 03:33] VITALS: BP 119/69
[2018-08-04] MEDS: DOCUSATE SODIUM 100 MG CAPSULE. PO SCH ×2 (05:39→18:00)
--- NOTE | 2018-08-04 08:36 | PDOC ---
Subjective: Subjective: Feels much better. Tolerating diet last night, no n/v. Abd pain has resolved. Stooled. Would like to advance diet and go home. Objective: Vital Signs: Vital Signs Date Time Temp Pulse Resp B/P (MAP) Pulse Ox O2 Delivery O2 Flow Rate FiO2 08/04/18 03:33 98.6 55 20 119/69 (86) 98 Room Air 98.6 Labs: Laboratory Tests Test 08/03/18 12:15 Urine Opiates Screen Pos Urine Methadone Screen Neg Urine Barbiturates Neg Urine Phencyclidine Screen Neg Urine Amphetamine/Methamphetamine Neg Urine Benzodiazepines Screen Neg Urine Cocaine Screen Neg Urine Cannabinoids Screen Neg Urine Ethyl Alcohol Neg PE: GEN: NAD LUNGS: CTAB HEART: RRR ABD: NABS, S/ND/NT NEURO/PSYCH: A & O 3 A/P: Epigastric pain, n/v - resolved S/p Tiki-en-Y and revision, GERD -- Symptoms resolved - considering this, will not pursue EGD as inpt today. REYES SONI per primary. Okay to continue PPI and Carafate for now. Follow-up w/ bariatric surgeon. TANISHA MARCH Aug 04, 2018 08:36
--- NOTE | 2018-08-04 09:07 | PDOC ---
PROGRESS NOTES History of Present Illness History of Present Illness discharge dx Assessment/Plan IMPRESSION: 1. No evidence of bowel obstruction. 2. Appendix is normal. 3. Moderate to large volume colonic stool content in the right colon./ obstipation 4. abdominal pain sec to # 3 08/04 several bm's overnight, now feels better plan laxatives miralax daily colace 100mg po bid gen surg consult d/c narcotics, will compound obstipation mag citrate 12 oz po x 1 08/03 bekah well Vitals Vitals Vital Signs Date Time Temp Pulse Resp B/P (MAP) Pulse Ox O2 Delivery O2 Flow Rate FiO2 08/04/18 03:33 98.6 55 20 119/69 (86) 98 Room Air 98.6 Physical Exam General: Alert, Oriented X3, Cooperative, No acute distress Heart: Regular rate, Normal S1, Normal S2, No murmurs Lungs: Clear Abdomen: Normal bowel sounds, Soft, No tenderness, No hepatosplenomegaly Extremities: No clubbing, No cyanosis Skin: No rashes, No breakdown Labs LABS Laboratory Tests Test 08/03/18 12:15 Urine Opiates Screen Pos (NEG) Urine Methadone Screen Neg (NEG) Urine Barbiturates Neg (NEG) Urine Phencyclidine Screen Neg (NEG) Urine Amphetamine/Methamphetamine Neg (NEG) Urine Benzodiazepines Screen Neg (NEG) Urine Cocaine Screen Neg (NEG) Urine Cannabinoids Screen Neg (NEG) Urine Ethyl Alcohol Neg (NEG) Comment Review of Relevant I have reviewed the following items emily (where applicable) has been applied. Labs Laboratory Tests Test 08/03/18 01:58 08/03/18 02:00 08/03/18 02:02 08/03/18 02:40 Urine Collection Type Unknown Urine Color Yellow Urine Clarity Clear Urine pH 6.5 Urine Specific [place] 1.010 Urine Protein Negative mg/dL (NEG-TRACE) Urine Glucose (UA) Negative mg/dL (NEG) Urine Ketones (Stick) 15 mg/dL (NEG) Urine Blood Negative (NEG) Urine Nitrite Negative (NEG) Urine Bilirubin Negative (NEG) Urine Urobilinogen Dipstick 1.0 mg/dL (0.2 mg/dL) Urine Leukocyte Esterase Small (NEG) Urine RBC 0 /HPF (0-2) Urine WBC 5-10 /HPF (0-4) Urine Squamous Epithelial Cells Many /LPF Urine Bacteria Moderate /HPF (0-FEW) Urine Mucus Slight /LPF White Blood Count 3.0 x10^3/uL (4.0-11.0) Red Blood Count 4.04 x10^6/uL (3.50-5.40) Hemoglobin 12.7 g/dL (12.0-15.5) Hematocrit 37.7 % (36.0-47.0) Mean Corpuscular Volume 94 fL (79-100) Mean Corpuscular Hemoglobin 32 pg (25-35) Mean Corpuscular Hemoglobin Concent 34 g/dL (31-37) Red Cell Distribution Width 14.2 % (11.5-14.5) Platelet Count 200 x10^3/uL (140-400) Neutrophils (%) (Auto) 35 % (31-73) Lymphocytes (%) (Auto) 56 % (24-48) Monocytes (%) (Auto) 9 % (0-9) Eosinophils (%) (Auto) 1 % (0-3) Basophils (%) (Auto) 1 % (0-3) Neutrophils # (Auto) 1.1 x10^3uL (1.8-7.7) Lymphocytes # (Auto) 1.7 x10^3/uL (1.0-4.8) Monocytes # (Auto) 0.3 x10^3/uL (0.0-1.1) Eosinophils # (Auto) 0.0 x10^3/uL (0.0-0.7) Basophils # (Auto) 0.0 x10^3/uL (0.0-0.2) Sodium Level 140 mmol/L (136-145) Potassium Level 4.1 mmol/L (3.5-5.1) Chloride Level 103 mmol/L (98-107) Carbon Dioxide Level 23 mmol/L (21-32) Anion Gap 14 (6-14) Blood Urea Nitrogen 17 mg/dL (7-20) Creatinine 0.7 mg/dL (0.6-1.0) Estimated GFR (Cockcroft-Gault) 108.5 BUN/Creatinine Ratio 24 (6-20) Glucose Level 88 mg/dL (70-99) Calcium Level 9.3 mg/dL (8.5-10.1) Total Bilirubin 0.6 mg/dL (0.2-1.0) Aspartate Amino Transf (AST/SGOT) 28 U/L (15-37) Alanine Aminotransferase (ALT/SGPT) 22 U/L (14-59) Alkaline Phosphatase 66 U/L (46-116) Troponin I Quantitative < 0.017 ng/mL (0.000-0.055) Total Protein 8.2 g/dL (6.4-8.2) Albumin 3.6 g/dL (3.4-5.0) Albumin/Globulin Ratio 0.8 (1.0-1.7) Lipase 207 U/L (73-393) Bedside Urine HCG, Qualitative Hcg negative (Negative) Lactic Acid Level 1.4 mmol/L (0.4-2.0) Test 08/03/18 12:15 Urine Opiates Screen Pos (NEG) Urine Methadone Screen Neg (NEG) Urine Barbiturates Neg (NEG) Urine Phencyclidine Screen Neg (NEG) Urine Amphetamine/Methamphetamine Neg (NEG) Urine Benzodiazepines Screen Neg (NEG) Urine Cocaine Screen Neg (NEG) Urine Cannabinoids Screen Neg (NEG) Urine Ethyl Alcohol Neg (NEG) Laboratory Tests Test 08/03/18 12:15 Urine Opiates Screen Pos (NEG) Urine Methadone Screen Neg (NEG) Urine Barbiturates Neg (NEG) Urine Phencyclidine Screen Neg (NEG) Urine Amphetamine/Methamphetamine Neg (NEG) Urine Benzodiazepines Screen Neg (NEG) Urine Cocaine Screen Neg (NEG) Urine Cannabinoids Screen Neg (NEG) Urine Ethyl Alcohol Neg (NEG) Medications Current Medications Morphine Sulfate (Morphine Sulfate) 4 mg 1X ONCE IV Last administered on at 02:29; Start 08/03/18 at 02:15; Stop 08/03/18 at 02:16; Status DC Sodium Chloride 1,000 ml @ 1,000 mls/hr 1X ONCE IV Last administered on at 02:23; Start 08/03/18 at 02:15; Stop 08/03/18 at 03:14; Status DC Ondansetron HCl (Zofran) 4 mg 1X ONCE IV Last administered on 08/03/18at 02:28 ; Start 08/03/18 at 02:15; Stop 08/03/18 at 02:16; Status DC Morphine Sulfate (Morphine Sulfate) 4 mg 1X ONCE IV Last administered on 03:05; Start 08/03/18 at 03:00; Stop 08/03/18 at 03:01; Status DC Iohexol (Omnipaque 300 Mg/ml) 75 ml 1X ONCE IV Last administered on 08/03/18at 03:21; Start 08/03/18 at 03:15; Stop 08/03/18 at 03:16; Status DC Info (CONTRAST GIVEN -- Rx MONITORING) 1 each PRN DAILY PRN MC SEE COMMENTS; Start 08/03/18 at 03:15; Stop 08/05/18 at 03:14 Ondansetron HCl (Zofran) 4 mg PRN Q8HRS PRN IV NAUSEA/VOMITING Last administered on 08/03/18at 09:04; Start 08/03/18 at 04:15; Stop 08/04/18 at 04:14 ; Status DC Morphine Sulfate (Morphine Sulfate) 4 mg PRN Q2HR PRN IV PAIN Last administered on 08/03/18 06:29; Start 08/03/18 at 04:15; Stop 08/03/18 at 12:09 ; Status DC Sodium Chloride 1,000 ml @ 75 mls/hr [id number] IV Last administered on at 14:54; Start 08/03/18 at 04:15; Stop 08/04/18 at 04:14; Status DC Famotidine (Pepcid Vial) 20 mg 1X ONCE IVP Last administered on 08/03/18 04: 28; Start 08/03/18 at 04:15; Stop 08/03/18 at 04:16; Status DC Hydromorphone HCl (Dilaudid) 1 mg PRN Q3HRS PRN IV SEVERE PAIN Last administered on 08/03/18 08:25; Start 08/03/18 at 07:45; Stop 08/03/18 at 12:09 ; Status DC Doxycycline Hyclate (Vibra-Tab) 150 mg DAILY PO Last administered on 08/03/18at 14:43; Start 08/03/18 at 13:00 Spironolactone (Aldactone) 100 mg BID PO Last administered on 08/03/18at 20:37; Start 08/03/18 at 13:00 Polyethylene Glycol (miraLAX PACKET) 17 gm DAILY PO Last administered on at 14:43; Start 08/03/18 at 13:00 Docusate Sodium (Colace) 100 mg [id number] PO Last administered on 08/04/18at 05:39; Start 08/03/18 at 18:00 Magnesium Citrate (Citroma) 296 ml 1X ONCE PO Last administered on 08/03/18at 17:16; Start 08/03/18 at 12:30; Stop 08/03/18 at 12:58; Status DC Pantoprazole Sodium (Protonix) 40 mg DAILYAC PO Last administered on 08/03/18at 17:16; Start 08/03/18 at 16:30 Promethazine HCl (Phenergan) 12.5 mg PRN Q6HRS PRN PO NAUSEA/VOMITING Last administered on 08/03/18 13:26; Start 08/03/18 at 12:30 Sucralfate (Carafate) 1 gm QIDACHS PO Last administered on 08/03/18at 20:37; Start 08/03/18 at 16:30; Stop 08/04/18 at 08:37; Status DC Sucralfate (Carafate) 1 gm BIDAC PO ; Start 08/04/18 at 09:00 Active Scripts Active Reported Doxycycline Hyclate 150 Mg Tablet 150 Mg PO DAILY Spironolactone 100 Mg Tablet 100 Mg PO BID Vitals/I & O Vital Sign - Last 24 Hours 08/03/18 08/03/18 08/03/18 08/03/18 11:07 15:00 19:57 20:00 Temp 97.9 97.8 98.4 97.9 97.8 98.4 Pulse 67 63 57 Resp 18 20 20 B/P (MAP) 133/58 (83) 111/69 (83) 100/68 (79) Pulse Ox 97 100 99 O2 Delivery Room Air Room Air Room Air Room Air 08/03/18 08/04/18 23:13 03:33 Temp 98.9 98.6 98.9 98.6 Pulse 51 55 Resp 18 20 B/P (MAP) 102/65 (77) 119/69 (86) Pulse Ox 96 98 O2 Delivery Room Air Room Air Intake and Output 08/03/18 08/03/18 08/04/18 15:00 23:00 07:00 Intake Total 0 ml 280 ml 320 ml Output Total 3 ml Balance 0 ml 277 ml 320 ml LIDA GOTTI MD Aug 04, 2018 09:07
[2018-08-04] MEDS: SUCRALFATE 1 GM/10 ML ORAL.SUSP. PO SCH ×2 (09:54→16:33)
[2018-08-04] MEDS: PANTOPRAZOLE 40 MG TABLET.DR. PO SCH (09:54)
[2018-08-04] MEDS: SPIRONOLACTONE 25 MG TABLET PO SCH ×2 (09:54→20:15)
[2018-08-04] MEDS: DOXYCYCLINE HYCLATE 100 MG TABLET PO SCH (09:54)
[2018-08-04] MEDS: POLYETHYLENE GLYCOL 3350 17 GM PACKET. PO SCH (09:54)
[2018-08-04] MEDS ORDERED: ACETAMINOPHEN 325 MG TABLET. PO PRN (10:00)
[2018-08-04 10:46] VITALS: BP 127/77
--- NOTE | 2018-08-04 13:00 | NUR ---
After lunch, patient began c/o pain in abdomen and back, describing it as sharp and cramping. Patient has had multiple loose BMs today. Dr. Arreola notified. Orders received for pain meds. Dr. Forte also notified. KUB ordered. Will continue to monitor. Hold discharge for now.
[2018-08-04] MEDS ORDERED: MAGNESIUM HYDROXIDE 2,400 MG/30 ML ORAL.SUSP. PO PRN (14:45)
[2018-08-04] MEDS ORDERED: HYDROcodone/APAP 5/325MG 1 TAB TABLET PO ONE (14:45)
--- NOTE | 2018-08-04 15:03 | RAD ---
Examination: Single frontal view of the abdomen HISTORY: History of abdominal pain COMPARISON: None available. FINDINGS: Cholecystectomy changes identified in the right upper quadrant of the abdomen. Bowel gas pattern appears unremarkable. Feces and gas noted in the colon. Surgical changes identified in the epigastric region and left mid abdomen. IMPRESSION: Nonobstructive bowel gas pattern. Electronically signed by: Andres Yan MD (08/04/2018 3:00 PM) [id number]
--- NOTE | 2018-08-04 15:22 | PDOC3 ---
Discharge Summary Date of Admission: Aug 03, 2018 Date of Discharge: Aug 04, 2018 Follow-Up: 3-5 days Admitting Diagnosis comment: discharge dx Assessment/Plan IMPRESSION: 1. No evidence of bowel obstruction. 2. Appendix is normal. 3. Moderate to large volume colonic stool content in the right colon./ obstipation 4. abdominal pain sec to # 3 08/04 several bm's overnight, now feels better wants to go home plan laxatives miralax daily colace 100mg po bid gen surg consult d/c narcotics, will compound obstipation mag citrate 12 oz po x 1 08/03 bekah well Vitals Vitals Vital Signs Date Time Temp Pulse Resp B/P (MAP) Pulse Ox O2 Delivery O2 Flow Rate FiO2 08/04/18 03:33 98.6 55 20 119/69 (86) 98 Room Air 98.6 Physical Exam General: Alert, Oriented X3, Cooperative, No acute distress Heart: Regular rate, Normal S1, Normal S2, No murmurs Lungs: Clear Abdomen: Normal bowel sounds, Soft, No tenderness, No hepatosplenomegaly Extremities: No clubbing, No cyanosis Skin: No rashes, No breakdown Labs LABS Laboratory Tests Test 08/03/18 12:15 Urine Opiates Screen Pos (NEG) Urine Methadone Screen Neg (NEG) Urine Barbiturates Neg (NEG) Urine Phencyclidine Screen Neg (NEG) Urine Amphetamine/Methamphetamine Neg (NEG) Urine Benzodiazepines Screen Neg (NEG) Urine Cocaine Screen Neg (NEG) Urine Cannabinoids Screen Neg (NEG) Urine Ethyl Alcohol Neg (NEG) Brief Hospital Course Ms. Cantor is a 48 old [sex] who presented with [ severe constipation, abd pain ] CONDITION AT DISCHARGE: Improved Discharge Medications Current Medications Morphine Sulfate (Morphine Sulfate) 4 mg 1X ONCE IV Last administered on at 02:29; Start 08/03/18 at 02:15; Stop 08/03/18 at 02:16; Status DC Sodium Chloride 1,000 ml @ 1,000 mls/hr 1X ONCE IV Last administered on at 02:23; Start 08/03/18 at 02:15; Stop 08/03/18 at 03:14; Status DC Ondansetron HCl (Zofran) 4 mg 1X ONCE IV Last administered on 08/03/18at 02:28 ; Start 08/03/18 at 02:15; Stop 08/03/18 at 02:16; Status DC Morphine Sulfate (Morphine Sulfate) 4 mg 1X ONCE IV Last administered on at 03:05; Start 08/03/18 at 03:00; Stop 08/03/18 at 03:01; Status DC Iohexol (Omnipaque 300 Mg/ml) 75 ml 1X ONCE IV Last administered on 08/03/18at 03:21; Start 08/03/18 at 03:15; Stop 08/03/18 at 03:16; Status DC Info (CONTRAST GIVEN -- Rx MONITORING) 1 each PRN DAILY PRN MC SEE COMMENTS; Start 08/03/18 at 03:15; Stop 08/05/18 at 03:14 Ondansetron HCl (Zofran) 4 mg PRN Q8HRS PRN IV NAUSEA/VOMITING Last administered on 08/03/18at 09:04; Start 08/03/18 at 04:15; Stop 08/04/18 at 04:14 ; Status DC Morphine Sulfate (Morphine Sulfate) 4 mg PRN Q2HR PRN IV PAIN Last administered on 08/03/18at 06:29; Start 08/03/18 at 04:15; Stop 08/03/18 at 12:09 ; Status DC Sodium Chloride 1,000 ml @ 75 mls/hr [id number] IV Last administered on at 14:54; Start 08/03/18 at 04:15; Stop 08/04/18 at 04:14; Status DC Famotidine (Pepcid Vial) 20 mg 1X ONCE IVP Last administered on 08/03/18at 04: 28; Start 08/03/18 at 04:15; Stop 08/03/18 at 04:16; Status DC Hydromorphone HCl (Dilaudid) 1 mg PRN Q3HRS PRN IV SEVERE PAIN Last administered on 08/03/18at 08:25; Start 08/03/18 at 07:45; Stop 08/03/18 at 12:09 ; Status DC Doxycycline Hyclate (Vibra-Tab) 150 mg DAILY PO Last administered on 08/04/18at 09:54; Start 08/03/18 at 13:00 Spironolactone (Aldactone) 100 mg BID PO Last administered on 08/04/18 09:54; Start 08/03/18 at 13:00 Polyethylene Glycol (miraLAX PACKET) 17 gm DAILY PO Last administered on 09:54; Start 08/03/18 at 13:00 Docusate Sodium (Colace) 100 mg [id number] PO Last administered on 08/04/18 05:39; Start 08/03/18 at 18:00 Magnesium Citrate (Citroma) 296 ml 1X ONCE PO Last administered on 08/03/18 17:16; Start 08/03/18 at 12:30; Stop 08/03/18 at 12:58; Status DC Pantoprazole Sodium (Protonix) 40 mg DAILYAC PO Last administered on 08/04/18 09:54; Start 08/03/18 at 16:30 Promethazine HCl (Phenergan) 12.5 mg PRN Q6HRS PRN PO NAUSEA/VOMITING Last administered on 08/03/18 13:26; Start 08/03/18 at 12:30 Sucralfate (Carafate) 1 gm QIDACHS PO Last administered on 08/03/18 20:37; Start 08/03/18 at 16:30; Stop 08/04/18 at 08:37; Status DC Sucralfate (Carafate) 1 gm BIDAC PO Last administered on 08/04/18 09:54; Start 08/04/18 at 09:00 Acetaminophen (Tylenol) 650 mg PRN Q6HRS PRN PO HEADACHE; Start 08/04/18 at 10: 00 Acetaminophen/ Hydrocodone Bitart (Lortab 5/325) 1 tab 1X ONCE PO Last administered on 08/04/18 14:42; Start 08/04/18 at 14:45; Stop 08/04/18 at 14:46 ; Status DC Magnesium Hydroxide (Milk Of Magnesia) 2,400 mg PRN DAILY PRN PO CONSTIPATION; Start 08/04/18 at 14:45 Active Scripts Active Reported Doxycycline Hyclate 150 Mg Tablet 150 Mg PO DAILY Spironolactone 100 Mg Tablet 100 Mg PO BID Vital Signs Vital Signs Date Time Temp Pulse Resp B/P (MAP) Pulse Ox O2 Delivery O2 Flow Rate FiO2 08/04/18 10:46 98.2 67 18 127/77 (94) 98 Room Air 98.2 Labs Laboratory Tests Test 08/03/18 01:58 08/03/18 02:00 08/03/18 02:02 08/03/18 02:40 Urine Collection Type Unknown Urine Color Yellow Urine Clarity Clear Urine pH 6.5 Urine Specific [place] 1.010 Urine Protein Negative mg/dL (NEG-TRACE) Urine Glucose (UA) Negative mg/dL (NEG) Urine Ketones (Stick) 15 mg/dL (NEG) Urine Blood Negative (NEG) Urine Nitrite Negative (NEG) Urine Bilirubin Negative (NEG) Urine Urobilinogen Dipstick 1.0 mg/dL (0.2 mg/dL) Urine Leukocyte Esterase Small (NEG) Urine RBC 0 /HPF (0-2) Urine WBC 5-10 /HPF (0-4) Urine Squamous Epithelial Cells Many /LPF Urine Bacteria Moderate /HPF (0-FEW) Urine Mucus Slight /LPF White Blood Count 3.0 x10^3/uL (4.0-11.0) Red Blood Count 4.04 x10^6/uL (3.50-5.40) Hemoglobin 12.7 g/dL (12.0-15.5) Hematocrit 37.7 % (36.0-47.0) Mean Corpuscular Volume 94 fL (79-100) Mean Corpuscular Hemoglobin 32 pg (25-35) Mean Corpuscular Hemoglobin Concent 34 g/dL (31-37) Red Cell Distribution Width 14.2 % (11.5-14.5) Platelet Count 200 x10^3/uL (140-400) Neutrophils (%) (Auto) 35 % (31-73) Lymphocytes (%) (Auto) 56 % (24-48) Monocytes (%) (Auto) 9 % (0-9) Eosinophils (%) (Auto) 1 % (0-3) Basophils (%) (Auto) 1 % (0-3) Neutrophils # (Auto) 1.1 x10^3uL (1.8-7.7) Lymphocytes # (Auto) 1.7 x10^3/uL (1.0-4.8) Monocytes # (Auto) 0.3 x10^3/uL (0.0-1.1) Eosinophils # (Auto) 0.0 x10^3/uL (0.0-0.7) Basophils # (Auto) 0.0 x10^3/uL (0.0-0.2) Sodium Level 140 mmol/L (136-145) Potassium Level 4.1 mmol/L (3.5-5.1) Chloride Level 103 mmol/L (98-107) Carbon Dioxide Level 23 mmol/L (21-32) Anion Gap 14 (6-14) Blood Urea Nitrogen 17 mg/dL (7-20) Creatinine 0.7 mg/dL (0.6-1.0) Estimated GFR (Cockcroft-Gault) 108.5 BUN/Creatinine Ratio 24 (6-20) Glucose Level 88 mg/dL (70-99) Calcium Level 9.3 mg/dL (8.5-10.1) Total Bilirubin 0.6 mg/dL (0.2-1.0) Aspartate Amino Transf (AST/SGOT) 28 U/L (15-37) Alanine Aminotransferase (ALT/SGPT) 22 U/L (14-59) Alkaline Phosphatase 66 U/L (46-116) Troponin I Quantitative < 0.017 ng/mL (0.000-0.055) Total Protein 8.2 g/dL (6.4-8.2) Albumin 3.6 g/dL (3.4-5.0) Albumin/Globulin Ratio 0.8 (1.0-1.7) Lipase 207 U/L (73-393) Bedside Urine HCG, Qualitative Hcg negative (Negative) Lactic Acid Level 1.4 mmol/L (0.4-2.0) Test 08/03/18 12:15 Urine Opiates Screen Pos (NEG) Urine Methadone Screen Neg (NEG) Urine Barbiturates Neg (NEG) Urine Phencyclidine Screen Neg (NEG) Urine Amphetamine/Methamphetamine Neg (NEG) Urine Benzodiazepines Screen Neg (NEG) Urine Cocaine Screen Neg (NEG) Urine Cannabinoids Screen Neg (NEG) Urine Ethyl Alcohol Neg (NEG) Allergies Allergies Coded Allergies Type Severity Reaction Last Updated Verified No Known Drug Allergies 08/03/18 No Disposition/Orders: D/C to Home Patient Instructions d/c planning 39 min LIDA GOTTI MD Aug 04, 2018 15:22
[2018-08-04] MEDS ORDERED: DOCU-109 PO (15:25)
[2018-08-04] MEDS ORDERED: SUCR1ORA5 PO (15:25)
[2018-08-04] MEDS ORDERED: Pantoprazole PO (15:25)
[2018-08-04] MEDS ORDERED: POLY17PO28 PO (15:25)
--- NOTE | 2018-08-04 15:25 | DISCH ---
DISCHARGE INSTRUCTIONS Condition on Discharge Condition on Discharge: Stable Activity After Discharge Activity Instructions for Disc: Activity as tolerated Lifting Instructions after Dis: No heavy lifting, No pulling or pushing Exercise Instruction after Dis: Walk 10 min, 3 x per day Driving Instructions after Dis: Do not drive today Weight Bearing Status after Di: Full weight bearing Diet after Discharge Diet after Discharge: GI Soft, Regular Contacting the DR. after DC Call your doctor for: If your condition worsens Follow-Up Follow Up With: primary care provider LIDA GOTTI MD Aug 04, 2018 15:25
[2018-08-04] MEDS: HYOSCYAMINE 0.125 MG TAB.RAPDIS PO PRN (16:32)
[2018-08-04] MEDS: PROMETHAZINE 12.5 MG TABLET. PO PRN (18:18)
[2018-08-04] MEDS ORDERED: HYDROcodone/APAP 5/325MG 1 TAB TABLET PO PRN (18:30)
[2018-08-04 19:35] VITALS: BP 109/72
[2018-08-04 23:33] VITALS: BP 110/63
[2018-08-05 03:20] VITALS: BP 124/68
[2018-08-05] MEDS: DOCUSATE SODIUM 100 MG CAPSULE. PO SCH ×2 (06:26→17:46)
--- NOTE | 2018-08-05 06:46 | NUR ---
Pt able to rest during the noc with eyes closed. Pt with heating pad for back and states able to relieve discomfort. No further complaints noted.
[2018-08-05 07:20] VITALS: BP 117/65
[2018-08-05] MEDS: DOXYCYCLINE HYCLATE 100 MG TABLET PO SCH (08:31)
[2018-08-05] MEDS: SPIRONOLACTONE 25 MG TABLET PO SCH (08:32)
[2018-08-05] MEDS: PANTOPRAZOLE 40 MG TABLET.DR. PO SCH (08:32)
[2018-08-05] MEDS: SUCRALFATE 1 GM/10 ML ORAL.SUSP. PO SCH ×2 (08:32→17:45)
[2018-08-05] MEDS: HYOSCYAMINE 0.125 MG TAB.RAPDIS PO PRN (08:33)
[2018-08-05] MEDS: POLYETHYLENE GLYCOL 3350 17 GM PACKET. PO SCH (09:00)
[2018-08-05] MEDS ORDERED: IV RINGERS,LACTATED 1000ML 1,000 ML IV SCH (10:31)
--- NOTE | 2018-08-05 10:41 | PDOC ---
PROGRESS NOTES History of Present Illness History of Present Illness discharge dx Assessment/Plan IMPRESSION: 1. No evidence of bowel obstruction. 2. Appendix is normal. 3. Moderate to large volume colonic stool content in the right colon./ obstipation 4. abdominal pain sec to # 3 08/04 several bm's overnight, now feels better PAIN RETURNED THIS PM 08/05 consider EGD +/- colonoscopy plan laxatives miralax daily colace 100mg po bid gen surg consult d/c narcotics, will compound obstipation mag citrate 12 oz po x 1 08/03 bekah well Vitals Vitals Vital Signs Date Time Temp Pulse Resp B/P (MAP) Pulse Ox O2 Delivery O2 Flow Rate FiO2 08/05/18 09:34 18 Room Air 08/05/18 07:20 98.5 60 117/65 (82) 99 98.5 Physical Exam General: Alert, Oriented X3, Cooperative, No acute distress, mild distress Heart: Regular rate, Normal S1, Normal S2, No murmurs Lungs: Clear Abdomen: Normal bowel sounds, Soft, No tenderness, No hepatosplenomegaly Extremities: No clubbing, No cyanosis Skin: No rashes, No breakdown Comment Review of Relevant I have reviewed the following items emily (where applicable) has been applied. Labs Laboratory Tests Test 08/03/18 12:15 Urine Opiates Screen Pos (NEG) Urine Methadone Screen Neg (NEG) Urine Barbiturates Neg (NEG) Urine Phencyclidine Screen Neg (NEG) Urine Amphetamine/Methamphetamine Neg (NEG) Urine Benzodiazepines Screen Neg (NEG) Urine Cocaine Screen Neg (NEG) Urine Cannabinoids Screen Neg (NEG) Urine Ethyl Alcohol Neg (NEG) Microbiology 08/03/18 Urine Culture - Final, Complete 08/03/18 Urine Culture Result 1 (MADELEINE) - Final, Complete Medications Current Medications Morphine Sulfate (Morphine Sulfate) 4 mg 1X ONCE IV Last administered on at 02:29; Start 08/03/18 at 02:15; Stop 08/03/18 at 02:16; Status DC Sodium Chloride 1,000 ml @ 1,000 mls/hr 1X ONCE IV Last administered on at 02:23; Start 08/03/18 at 02:15; Stop 08/03/18 at 03:14; Status DC Ondansetron HCl (Zofran) 4 mg 1X ONCE IV Last administered on 08/03/18at 02:28 ; Start 08/03/18 at 02:15; Stop 08/03/18 at 02:16; Status DC Morphine Sulfate (Morphine Sulfate) 4 mg 1X ONCE IV Last administered on at 03:05; Start 08/03/18 at 03:00; Stop 08/03/18 at 03:01; Status DC Iohexol (Omnipaque 300 Mg/ml) 75 ml 1X ONCE IV Last administered on 08/03/18at 03:21; Start 08/03/18 at 03:15; Stop 08/03/18 at 03:16; Status DC Info (CONTRAST GIVEN -- Rx MONITORING) 1 each PRN DAILY PRN MC SEE COMMENTS; Start 08/03/18 at 03:15; Stop 08/05/18 at 03:14; Status DC Ondansetron HCl (Zofran) 4 mg PRN Q8HRS PRN IV NAUSEA/VOMITING Last administered on 08/03/18at 09:04; Start 08/03/18 at 04:15; Stop 08/04/18 at 04:14 ; Status DC Morphine Sulfate (Morphine Sulfate) 4 mg PRN Q2HR PRN IV PAIN Last administered on 08/03/18at 06:29; Start 08/03/18 at 04:15; Stop 08/03/18 at 12:09 ; Status DC Sodium Chloride 1,000 ml @ 75 mls/hr [id number] IV Last administered on at 14:54; Start 08/03/18 at 04:15; Stop 08/04/18 at 04:14; Status DC Famotidine (Pepcid Vial) 20 mg 1X ONCE IVP Last administered on 08/03/18at 04: 28; Start 08/03/18 at 04:15; Stop 08/03/18 at 04:16; Status DC Hydromorphone HCl (Dilaudid) 1 mg PRN Q3HRS PRN IV SEVERE PAIN Last administered on 08/03/18at 08:25; Start 08/03/18 at 07:45; Stop 08/03/18 at 12:09 ; Status DC Doxycycline Hyclate (Vibra-Tab) 150 mg DAILY PO Last administered on 2/28/19at 08:31; Start 08/03/18 at 13:00 Spironolactone (Aldactone) 100 mg BID PO Last administered on 08/05/18 08:32; Start 08/03/18 at 13:00 Polyethylene Glycol (miraLAX PACKET) 17 gm DAILY PO Last administered on 09:54; Start 08/03/18 at 13:00 Docusate Sodium (Colace) 100 mg [id number] PO Last administered on 08/05/18 06:26; Start 08/03/18 at 18:00 Magnesium Citrate (Citroma) 296 ml 1X ONCE PO Last administered on 08/03/18 17:16; Start 08/03/18 at 12:30; Stop 08/03/18 at 12:58; Status DC Pantoprazole Sodium (Protonix) 40 mg DAILYAC PO Last administered on 08/05/18 08:32; Start 08/03/18 at 16:30 Promethazine HCl (Phenergan) 12.5 mg PRN Q6HRS PRN PO NAUSEA/VOMITING Last administered on 08/04/18 18:18; Start 08/03/18 at 12:30 Sucralfate (Carafate) 1 gm QIDACHS PO Last administered on 08/03/18 20:37; Start 08/03/18 at 16:30; Stop 08/04/18 at 08:37; Status DC Sucralfate (Carafate) 1 gm BIDAC PO Last administered on 08/05/18 08:32; Start 08/04/18 at 09:00 Acetaminophen (Tylenol) 650 mg PRN Q6HRS PRN PO HEADACHE; Start 08/04/18 at 10: 00 Acetaminophen/ Hydrocodone Bitart (Lortab 5/325) 1 tab 1X ONCE PO Last administered on 08/04/18 14:42; Start 08/04/18 at 14:45; Stop 08/04/18 at 14:46 ; Status DC Magnesium Hydroxide (Milk Of Magnesia) 2,400 mg PRN DAILY PRN PO CONSTIPATION; Start 08/04/18 at 14:45 Hyoscyamine (Anaspaz) 0.125 mg PRN Q4HRS PRN PO STOMACH CRAMPING Last administered on 08/05/18 08:33; Start 08/04/18 at 15:45 Acetaminophen/ Hydrocodone Bitart (Lortab 5/325) 1 tab PRN Q6HRS PRN PO MODERATE PAIN Last administered on 08/05/18at 08:34; Start 08/04/18 at 18:30 Ringer's Solution 1,000 ml @ 50 mls/hr Q20H IV ; Start 08/05/18 at 10:31; Stop 08/05/18 at 22:30 Active Scripts Active [Pantoprazole] 40 MG Tablet.dr 40 Mg PO DAILYAC 30 Days Carafate (Sucralfate) 1 Gm/10 Ml Oral.susp 1 Gm PO BIDAC 30 Days Polyethylene Glycol 3350 17 Gm Powd.pack 17 Gm PO DAILY 30 Days Colace (Docusate Sodium) 100 Mg Capsule 100 Mg PO BID66 30 Days Reported Doxycycline Hyclate 150 Mg Tablet 150 Mg PO DAILY Spironolactone 100 Mg Tablet 100 Mg PO BID Vitals/I & O Vital Sign - Last 24 Hours 08/04/18 08/04/18 08/04/18 08/04/18 10:46 19:35 20:00 23:33 Temp 98.2 97.7 97.9 98.2 97.7 97.9 Pulse 67 66 62 Resp 18 18 18 B/P (MAP) 127/77 (94) 109/72 (84) 110/63 (79) Pulse Ox 98 97 94 O2 Delivery Room Air Room Air Room Air Room Air 08/05/18 08/05/18 08/05/18 08/05/18 03:20 07:20 08:00 08:34 Temp 98.7 98.5 98.7 98.5 Pulse 57 60 Resp 18 18 18 B/P (MAP) 124/68 (86) 117/65 (82) Pulse Ox 96 99 O2 Delivery Room Air Room Air Room Air Room Air 08/05/18 09:34 Resp 18 O2 Delivery Room Air Intake and Output 08/04/18 08/04/18 08/05/18 14:59 22:59 06:59 Intake Total 600 ml 350 ml 250 ml Balance 600 ml 350 ml 250 ml LIDA GOTTI MD Aug 05, 2018 10:41
[2018-08-05 11:20] VITALS: BP 106/64
[2018-08-05] MEDS: IV RINGERS,LACTATED 1000ML 1,000 ML IV SCH ×2 (11:20→13:46)
[2018-08-05] MEDS ORDERED: fentaNYL PF VIAL 100 MCG/2 ML VIAL IV PRN ×2 (11:30)
[2018-08-05] MEDS ORDERED: LIDOCAINE 1% PF 2 ML VIAL. ID PRN (11:30)
[2018-08-05] MEDS ORDERED: MIDAZOLAM HCL/PF 2 MG/2 ML VIAL. IV PRN (11:30)
[2018-08-05] MEDS ORDERED: PROPOFOL 40 ML IV ONE (13:55)
--- NOTE | 2018-08-05 15:08 | PDOC4 ---
PROCEDURE Procedure History of epigastric pain and prior gastric bypass EGD anesthesia with propofol Findings- normal esophagus; 5 cm gastric pouch with normal, healthy appearing gastric/jejunal anastomosis- no stricture or ulceration noted and jejunum normal Plan- resume bariatric diet OK to d/c from GI point of view would take Miralax prn to treat constipation consider colonoscopy later as outpt BROCK CHRISTENSEN MD Aug 05, 2018 15:07
[2018-08-05 15:32] VITALS: BP 128/69
--- NOTE | 2018-08-05 18:30 | NUR ---
Pt discharged to home with spouse. Discharge teaching completed re: diet, activity, medications and follow up. Verbalized understanding.
== END 2018-08-05 18:40 | disposition home or self-care (01) | DRG 392 ==
LOC: ER 01:09 → EDBD 01:09 → 6 SOUTH 04:10
PROVIDERS: ADMIT Internal Medicine; ATTEND Internal Medicine
PROC: 0DJ08ZZ Inspection of Upper Intestinal Tract, Via Natural or Artificial Opening Endoscopic (ICD-10-PCS; principal; 2018-08-05 14:30)
DX: K59.00 Constipation, unspecified (principal); K21.9 Gastro-esophageal reflux disease without esophagitis; D72.819 Decreased white blood cell count, unspecified; Z98.84 Bariatric surgery status; Z90.711 Acquired absence of uterus with remaining cervical stump; Z90.49 Acquired absence of other specified parts of digestive tract; Z80.9 Family history of malignant neoplasm, unspecified
CPT/HCPCS: 36415; 43235; 74018; 74177; 80053; 80307; 81001; 81025; 83605; 83690; 84484; 85025; 87086; 93005; 96361; 96374; 96375; 96376; J1170; J2270; J2405; J2704; J3490; J7030; J7120; Q0169; Q9967; 99285-25

== ENCOUNTER 2020-04-14 16:58 | Emergency (ER) | payer OTHER ==
[~2020-04-14] VITALS: Ht 172.7 cm; Wt 90.9 kg
[~2020-04-14 16:58] MED LIST: DOCU-109 PO; POLY17PO28 PO; Pantoprazole PO; SPIR100T4 PO; SUCR1ORA5 PO; [UNRECOGNIZED DRUG - CODE] PO
--- NOTE | 2020-04-14 19:40 | RAD ---
EXAM: DATE: 04/14/2020 7:13 PM INDICATION: Reason: pui, cough, soa / Spl. Instructions: / History: COMPARISON: No Prior FINDINGS: The lung apices are not included in the [id number]. The heart is not enlarged. Mediastinal and hilar contours are normal. No focal parenchymal airspace opacity. No pleural effusion or pneumothorax. IMPRESSION: No radiographic evidence for acute cardiopulmonary process. Electronically signed by: Oziel Blanchard MD (04/14/2020 7:37 PM) [facility]
[2020-04-14] MEDS ORDERED: ONDA-84 PO (19:43)
--- NOTE | 2020-04-14 19:43 | ED.ADGEN ---
Past Medical History Past Medical History: Other Additional Past Medical Histor: Scarring Alopecia Past Surgical History: Other Additional Past Surgical Histo: Tiki-en-y and Revision, Fibroid Cysts removed Smoking Status: Never Smoker Alcohol Use: Occasionally Drug Use: None General Adult EDM: Chief Complaint: HEADACHE HPI: HPI: Patient is a 50 year old female who presents the emergency department with complaints of a headache, nausea, dry cough, shortness of breath, sweats, and chills for the last 2 days. She states that she also has a burning sensation inside of her nose. She denies any dizziness, nasal congestion, vision changes, sore throat, diarrhea, abdominal pain, vomiting, fever, numbness, tingling, or weakness. Patient states that she had a birthday constitution party a week ago and one of her friends that attend and that constitution party told her that he tested positive for Covid earlier this week. She denies any chest pain or palpitations. She currently rates her pain a 5 out of 10 on the pain scale, she denies any alleviating or exacerbating factors. Review of Systems: Review of Systems: Complete ROS is negative unless otherwise noted in HPI. Current Medications: Current Medications Medications (Trade) Dose Ordered Sig/Mikayla Start Time Stop Time Status Last Admin Dose Admin Acetaminophen/ Aspirin/Caffeine (Excedrin Migraine) 2 tab 1X ONCE 04/14/20 20:00 04/14/20 20:02 DC 04/14/20 20:12 2 TAB Allergies: Allergies: Allergies Coded Allergies Type Severity Reaction Last Updated Verified No Known Drug Allergies 08/05/18 No Physical Exam: PE: See Above Constitutional: Well developed, well nourished, no acute distress, non-toxic appearance, obese. [] HENT: Normocephalic, atraumatic, bilateral external ears normal, nose normal. [] Eyes: PERRLA, EOMI, conjunctiva normal, no discharge. [] Neck: Normal range of motion, no stridor. [] Cardiovascular:Heart rate regular rhythm Lungs & Thorax: Respirations even and unlabored, no retractions, no respiratory distress Skin: Warm, dry, no erythema, no rash. [] Extremities: No cyanosis, ROM intact, no edema. [] Neurologic: Alert and oriented X 3, no focal deficits noted. [] Psychologic: Affect normal, judgement normal, mood normal. [] Current Patient Data: Vital Signs: Vital Signs Date Time Temp Pulse Resp B/P (MAP) Pulse Ox O2 Delivery O2 Flow Rate FiO2 04/14/20 19:55 103 97 04/14/20 19:00 98.6 16 122/71 (88) Room Air 98.6 EKG: EKG: [] Heart Score: Risk Factors: Risk Factors: DM, Current or recent (<one month) smoker, HTN, HLP, family history of CAD, obesity. Risk Scores: Score 0 - 3: 2.5% MACE over next 6 weeks - Discharge Home Score 4 - 6: 20.3% MACE over next 6 weeks - Admit for Clinical Observation Score 7 - 10: 72.7% MACE over next 6 weeks - Early Invasive Strategies Radiology/Procedures: Radiology/Procedures: Chest x-ray negative for any acute findings read by Dr. Griffin [][facility] [address] [place] [address] IMAGING REPORT Signed PATIENT: FATMATA SELF ACCOUNT: [id number] : 1970 LOCATION: ER AGE: 50 SEX: F EXAM STATUS: PRE ER ORD. PHYSICIAN: ABUNDIO GODFREY APRN REASON: pui, cough, soa PROCEDURE: CHEST AP ONLY EXAM: DATE: 04/14/2020 7:13 PM INDICATION: Reason: pui, cough, soa / Spl. Instructions: / History: COMPARISON: No Prior FINDINGS: The lung apices are not included in the [id number]. The heart is not enlarged. Mediastinal and hilar contours are normal. No focal parenchymal airspace opacity. No pleural effusion or pneumothorax. IMPRESSION: No radiographic evidence for acute cardiopulmonary process. Electronically signed by: Oziel Grover MD (04/14/2020 7:37 PM) [facility] DICTATED and SIGNED BY: OZIEL GROVER MD DATE: 04/14/201936 Course & Med Decision Making: Course & Med Decision Making Pertinent Labs and Imaging studies reviewed. (See chart for details) 50-year-old female presented to the emergency department with multiple complaints after recent Covid exposure. Chest x-ray revealed no acute findings. Patient's symptoms are likely due to COVID-19. COVID-19 swab is pending. Will prescribe patient some Zofran for nausea at home. Encouraged her to drink clear fluids, eat a healthy diet, take vitamin C, and take Tylenol and ibuprofen as needed for pain/fever. Return to the emergency room if her shortness of breath worsens or fever does not respond to [id number] medications. Patient verbalized an understanding of home care, medications, follow-up, and return to ED instructions and was in agreement with the plan of care. [] I have reviewed the PA/SENIOR CAREGIVER's note and Plan of Care. I was available for consultation as needed during the patient's visit in the emergency department. I agree with the clinical impression, plans and disposition. Victorino Disclaimer: Victorino Disclaimer: This electronic medical record was generated, in whole or in part, using a voice recognition dictation system. Departure Departure Impression: Primary Impression: Person under investigation for COVID-19 Additional Impression: Nausea Disposition: 01 DC HOME SELF CARE/HOMELESS Condition: STABLE Referrals: NO PCP (PCP) Patient Instructions: Nausea, Adult, [id number] Additional Instructions: Fill the prescription and take it as directed. Drink clear fluids, eat a healthy diet, take vitamin C, and take Tylenol and ibuprofen as needed for pain/fever. Return to the emergency room if your shortness of breath worsens or fever does not respond to [id number] medications. You have been tested for or diagnosed with COVID-19. It is an infection caused by a new type of coronavirus. COVID-19 will cause cold-like or mild flu symptoms in most. It can cause more severe symptoms like problems breathing in some. There is no treatment for COVID-19. The body will clear the infection over time. Self-care will help to ease discomfort. Steps to Take: Self-Care Rest as needed. Healthy habits may help you feel better. Steps include: Choose healthy foods including fruits and vegetables. Drink water throughout the day. Get plenty of sleep each night. If you smoke, try to quit. It may ease breathing. Avoid alcohol. Keep Others Healthy The virus can spread to others. Droplets are released every time you sneeze or cough. The droplets can get into the mouth, nose, or eyes of people near you and lead to infection. To lower the chances of spreading COVID-19 to others: Stay at home until your doctor has said it is safe to leave. If you tested positive this will mean staying isolated until both of the following are true: At least 7 days have passed since the start of illness. You are free of fever for at least 72 hours without the use of medicine. During this time: - Avoid public areas, events, or transportation. Do not return to work or school until your doctor has said it is safe to do so. - Call ahead if you need to go to a medical center. Let them know you may have COVID-19. It will help them guide you where to go. They may also ask you to wear a facemask when you come to the office. - If you call for emergency medical services, let them know you may have COVID- 19. While at home: - Try to avoid close contact with others. Stay about 6 feet away. - If possible, spend most of your time in a separate room from others. - Use a face mask if you will be in close contact with others such as sharing a room or vehicle. - Have someone wipe down common surfaces in the home. Use household applied psychology professor every day on areas like doorknobs, counters, or sinks. - Cough or sneeze into a tissue. Throw the tissue away right after use. If a tissue is not available, cough or sneeze into your elbow. - Wash your hands often. Wash them after sneezing or coughing. Use soap and water and wash for at least 20 seconds. Alcohol based hand hand dry cleaner can be used if soap and water is not available. - Do not prepare food for others. Avoid sharing personal items like forks, spoons, or toothbrushes. - Avoid close contact with pets while you are sick. There is no evidence of the virus passing to pets. This is a safety step until more is known about this virus. Isolation can be frustrating. Social interaction can help. Keep in touch with friends and family through phone and tech options. You can still interact with others in your home, just keep a safe distance of about 6 feet. Follow-up: Your doctors office will check in with you to see if there are any changes in your health. You may be asked to keep track of symptoms to share with them. They will also let you know when you are clear to be in public again. Problems to Look Out For: Contact your doctor if your recovery is not going as you expect. Get emergency care if you have problems such as: - Trouble breathing - Nonstop chest pain or pressure - Changes in awareness, confusion, or problems waking - Lips or face have bluish color - Worsening of symptoms If you think you have an emergency, call for emergency medical services right away. As taken from [facility] Ondansetron Hcl (ONDANSETRON HCL) 4 Mg Tablet 1 TAB PO PRN Q6HRS PRN for NAUSEA/VOMITING for 3 Days, #10 TAB 0 Refills Prov: ABUNDIO GODFREY APRN 04/14/20 Problem Qualifiers ABUNDIO GODFREY APRN Apr 14, 2020 19:43 PATRICK GRIFFIN MD Apr 15, 2020 00:20
[2020-04-14 19:55] VITALS: BP 142/77
[2020-04-14] MEDS ORDERED: ASA/APAP/CAFFEINE 250/250/65MG TABLET. PO ONE (20:00)
--- NOTE | 2020-04-17 12:37 | NUR ---
IP: Informed pt of negative COVID test. pt verbalized understanding.
== END 2020-04-14 20:13 | disposition home or self-care (01) ==
LOC: ER 16:58
DX: R11.0 Nausea (principal); Z20.828 Contact with and (suspected) exposure to other viral communicable diseases; R06.02 Shortness of breath; R05 Cough; R51.9 Headache, unspecified; R20.8 Other disturbances of skin sensation; Z98.890 Other specified postprocedural states
CPT/HCPCS: 71045; 99284; C9803; U0003